=== PATIENT | female | born 1990 | race Caucasian/White ===

== ENCOUNTER 2021-01-07 19:14 | Emergency (ER) | payer MEDICAID ==
[~2021-01-07] VITALS: Ht 157.5 cm; Wt 59.0 kg
[2021-01-07 19:14] VITALS: BP 128/84
--- NOTE | 2021-01-07 19:15 | NUR ---
RT EAR PAIN X 5DAYS, TRIED DEBROX EAR DROPS BUT STATES IT FEELS "INFECTED." SLIGHT HEARING LOSS. PT A/OX4. TOLERATING R/A WELL WITH NO SOB
[2021-01-07] MEDS ORDERED: PRED50TA PO (19:49)
[2021-01-07] MEDS ORDERED: PSEU120T83 PO (19:49)
== END 2021-01-07 19:53 | disposition home or self-care (01) ==
LOC: ER 19:20
DX: H69.81 Other specified disorders of Eustachian tube, right ear (principal); Z79.899 Other long term (current) drug therapy